=== PATIENT | female | born 1955 | race Caucasian/White ===

== ENCOUNTER 2020-09-18 15:11 | Emergency (ER) | payer MEDICARE, MEDICAID ==
--- NOTE | 2020-09-18 15:44 | NUR ---
Went outside to get pt in wheelchair. Door screener informed this nurse pt had left at 1530.
== END 2020-09-18 15:49 | disposition left against medical advice (07) ==
LOC: EDUNIT# 15:11 → ER 15:13
DX: R07.9 Chest pain, unspecified (principal); R06.02 Shortness of breath